=== PATIENT | female | born 1990 | race Caucasian/White ===

== ENCOUNTER 2018-08-23 18:56 | Emergency (ER) | payer OTHER ==
[~2018-08-23] VITALS: Ht 157.5 cm; Wt 34.0 kg
[2018-08-23] MEDS ORDERED: SUPER B-50 COM1 EACH PO (22:26)
[2018-08-23] MEDS ORDERED: XANAX1 MG PO (22:27)
[2018-08-23] MEDS ORDERED: VITAMINC500 PO (22:27)
[2018-08-23] MEDS ORDERED: PROZAC40 MG PO (22:27)
[2018-08-23] MEDS ORDERED: ACETAMINOPHEN-1 EAC1 PO (22:29)
[2018-08-23] MEDS ORDERED: NAPROXEN375 MG PO (22:29)
[2018-08-23] MEDS ORDERED: NORCO 5-325 TA1 EACH PO (22:39)
[2018-08-23 23:00] VITALS: BP 115/76
== END 2018-08-23 23:00 | disposition home or self-care (01) ==
LOC: ER 18:56
DX: S42.291A Other displaced fracture of upper end of right humerus, initial encounter for closed fracture (principal); F17.210 Nicotine dependence, cigarettes, uncomplicated; Y04.2XXA Assault by strike against or bumped into by another person, initial encounter; Y92.89 Other specified places as the place of occurrence of the external cause; Y93.89 Activity, other specified; Y99.8 Other external cause status

== ENCOUNTER 2018-08-27 18:08 | Emergency (ER) | payer OTHER ==
[~2018-08-27] VITALS: Ht 157.5 cm; Wt 43.5 kg
[~2018-08-27 18:08] MED LIST: ACETAMINOPHEN-1 EAC1 PO; NAPROXEN375 MG PO; NORCO 5-325 TA1 EACH PO; PROZAC40 MG PO; SUPER B-50 COM1 EACH PO; VITAMINC500 PO; XANAX1 MG PO
[2018-08-27] MEDS ORDERED: NORCO 5-325 TA1 EACH PO (18:25)
[2018-08-27 18:44] VITALS: BP 136/73
== END 2018-08-27 18:44 | disposition home or self-care (01) ==
LOC: ER 18:08
DX: M25.511 Pain in right shoulder (principal); Z76.0 Encounter for issue of repeat prescription